=== PATIENT | female | born 1940 | race Caucasian/White ===

== ENCOUNTER 2017-02-12 08:29 | Inpatient (IN) | payer BC ==
--- NOTE | ~2017-02-12 | HP ---
History And Physical [place] [address] [facility] [place]. [address] NAME: KARI MARRERO : 36 STATUS : ADM Hedy PAT#: [id number] AGE: 76 ADM/REG DATE : 02/12/17 MR#: [id number] REPORT SERV DATE: 02/12/17 DICTATED BY: SARA DEVINE DATE: 02/12/17 REPORT STATUS : Draft TRANSCRIBED BY: MODFranci DATE: 02/12/17 DATE OF ADMISSION: 02/12/2017 CHIEF COMPLAINT: Fever, myalgia, and arthralgia starting last night. HISTORY OF PRESENT ILLNESS: This is a very pleasant 76-year-old female. She has a past medical history significant for diabetes type 2 noninsulin dependent, prior history of TIA, history of significant degenerative joint disease, osteoarthritis, prior history of back surgeries multiple with cervical spine fusions as well as lumbar spine laminectomy with chronic back and chronic neck pain on pain management provided by her pain management doctor, Dr. Morales, prior history of acute recurrent sinus infections, prior history of bronchitis, obstructive sleep apnea, noncompliant on CPAP, hyperlipidemia, and obesity presenting today to [facility] accompanied by her as well as by sons and daughters with complaints started last night. She spent her time with the daughter yesterday, and she started as the day passed with myalgia, arthralgia, and chills. There were significant chills and developing some fever. The chills according to the patient were going on whole night. They kept the patient up until this morning when she became very lethargic and that while they were checking her temperature was 103. As a result, they brought their family member to the hospital. She has had some nausea and she did have some increased urinary frequency and urgency, decreased appetite, weakness, and she experienced some sinus pressure for few days. She did not have any phonophobia or photophobia. She did not have any vomiting. No diarrhea or constipation nor she had any cough or any sputum production. The patient has not had any sick contacts recently. No recent hospitalization. She has been denying any sore throat, but she was complaining of some sinus congestion that started today. The patient has been treated in the emergency room and CAT scan of the abdomen and pelvis has been obtained, and after initial evaluation, Hospitalist Service has been asked for admission for further evaluation and treatment. PAST MEDICAL HISTORY: Significant for prior TIA, diabetes type 2, significant prior history of recurrent sinus infection, prior history of bronchitis, chronic back pain, and chronic neck pain. Also, degenerative joint disease, osteoarthritis, obesity, and obstructive sleep apnea. PAST SURGICAL HISTORY: Include back surgery in 1992, 1993, also cervical laminectomy x2, cholecystectomy, right total knee replacement, appendectomy, hysterectomy, tonsillectomy. SOCIAL HISTORY: The patient denies tobacco, alcohol, or IV drugs. ALLERGIES: THE PATIENT IS ALLERGIC TO PHENOTHIAZINE, SULFA, PREDNISONE, PROMETHAZINE, AND ASPIRIN. FAMILY HISTORY: Significant for heart disease and cancer. MEDICATIONS: At home include vitamin B, vitamin D, Flexeril, Estrace, Neurontin, [place], ibuprofen, Claritin, Antivert, Glucophage, Zoloft, Zocor, and steroid ingestions, last one administered three months ago. History And Physical [address] [address] NAME: KARI MARRERO : 38 STATUS : ADM Hedy PAT#: [id number] AGE: 76 ADM/REG DATE : 02/12/17 MR#: [id number] REPORT SERV DATE: 02/12/17 DICTATED BY: SARA DEVINE DATE: 02/12/17 REPORT STATUS : Draft TRANSCRIBED BY: NÉSTOR DATE: 02/12/17 REVIEW OF SYSTEMS: 14-point review of systems has been obtained and pertinent positive has been listed into the history of present illness. Otherwise, negative except those underlying above. PHYSICAL EXAMINATION: VITAL SIGNS: The patient currently on arrival, temperature T-max was 103, blood pressure was 144/54, heart rate 98, respiratory rate 20, and saturating 92% on room air. GENERAL: This is a very pleasant, well-developed, well-nourished female, currently in nonacute distress. She is alert and oriented x3. She is nonfocal. She follows all her commands appropriately. HEENT: Show pupils equal, round, reactive to light. Extraocular movements intact. No JVD. No lymphadenopathy. No thyromegaly appreciated. CHEST: Eval shows bilateral air entry. Clear anteroposterior. No wheezes, crackles, or rhonchi appreciated. CARDIOVASCULAR: She has regular rate and rhythm. S1 and S2 positive. No S3, no S4. No murmurs, rubs, or gallops appreciated. ABDOMEN: Soft with positive bowel sounds. Nontender. No guarding. No rebound. EXTREMITIES: No clubbing, cyanosis, or edema. NEUROLOGIC: The patient is alert and oriented x3. She is nonfocal. She follows all her commands appropriately. Cranial nerves are intact. LABORATORY DATA: Labs from today include sodium 140, potassium 3.8, chloride 103, CO2 of 26, BUN 18, creatinine 0.96, glucose is 156. Her liver function tests are normal. Total bilirubin 0.4, alkaline phosphatase 101, ALT 22, AST 15, lipase is 98. Her lactate was 3.8. White count 10.9, hemoglobin 12.5, hematocrit 37.9, platelets 147. Her influenza screen is negative. UA performed in the emergency room has been negative. Currently, blood cultures are pending. There is a chest x-ray, portable, performed in the emergency room shows no acute cardiopulmonary abnormalities that could be identified. There is a CT scan of the abdomen and pelvis without contrast that has been performed as well showing some fecal studies, constipation. There is some post cholecystectomy, ductal ectasia, possible mild gastritis, fat containing umbilical hernia, and colonic diverticulosis, but no evidence of acute diverticulitis. ASSESSMENT AND PLAN: This is a very pleasant 76-year-old female with: 1. Fever, chills, myalgias, arthralgia, questionable viral syndrome. 2. Possible sepsis. 3. History of recurrent sinus infection. 4. Diabetes type 2, noninsulin dependent. 5. Obstructive sleep apnea. 6. Chronic back pain, on chronic pain management. 7. Obesity. 8. History of vertigo. The patient is going to be admitted to Hospitalist Service. The patient has been pancultured currently. The patient has been already started on Zosyn in the emergency room. We are adding vancomycin and follow up the cultures very History And Physical [address] [place]. [address] NAME: KARI MARRERO : 38 STATUS : ADM Hedy PAT#: [id number] AGE: 76 ADM/REG DATE : 02/12/17 MR#: [id number] REPORT SERV DATE: 02/12/17 DICTATED BY: SARA DEVINE DATE: 02/12/17 REPORT STATUS : Draft TRANSCRIBED BY: MODL DATE: 02/12/17 closely. I am going to check a strep throat as well and procalcitonin level. We are going to follow up the blood cultures. Check a CT of the brain and the CT of the sinuses, provide the vigorous IV hydration and supportive care as well. Start her on clear liquid diet and advanced as tolerated. 9. History of sinusitis. Currently, the patient has significant sinus congestion. We are going to put her on broad-spectrum antibiotics, get the CT of the sinuses. Continue Claritin and add some Nasonex as well and follow her clinically. 10.History of diabetes. Hold metformin. Accu-Cheks before meals and at bedtime and sliding scale insulin subcutaneously level 1. 11.History of hyperlipidemia. Continue her home medications. 12.Chronic back pain, on chronic pain management. We will continue her home medication. Hold for sedation as well. We will provide reasonable pain and nausea control as well as gastrointestinal and deep venous thrombosis prophylaxis. Further workup and recommendation pending above. That has been discussed extensively with the patient as well as the patient's family. All the questions have been answered in full. Further workup and recommendation pending above. It is worthwhile to note that the patient is going to be followed up by Dr. Celestina Antonio. CF/NÉSTOR Sara Devine M.D. / [id number] CC: Paco Oscar Jr, MD
--- NOTE | ~2017-02-12 | DS ---
Discharge Summary [facility] [address] [facility] [place]. [address] NAME: KARI SUGGS : 38 STATUS : DIS IN PAT#: [id number] AGE: 76 ADM/REG DATE : 02/12/17 MR#: [id number] REPORT SERV DATE: 02/20/17 DICTATED BY: LLOYD YOUNGBLOOD DATE: 02/18/17 REPORT STATUS : Draft TRANSCRIBED BY: MODL DATE: 02/18/17 ADMISSION DATE: 02/12/2017 DISCHARGE DATE: Ms. Suggs is a 76-year-old female with a history of diabetes type 2, morbid obesity, and chronic pain syndrome, who presented to the emergency room with a complaint of fever, myalgia, arthralgia that started the night prior to presentation. For further details please refer to H and P dictated by Dr. Bazan on 02/12/2017. I assumed care of the patient on 02/17/2017. Briefly per chart review, upon the patient presenting to the emergency room, the patient was noted to be septic and also the patient was noted to have a left lower extremity cellulitis. Infectious Disease was subsequently consulted. Please refer to consultation note dictated by Infectious Disease on 02/16/2017. The patient had blood cultures drawn on presentation, 1 of 2 bottles was noted to be positive for group B strep. Per ID recommendation, the patient was placed on IV cefazolin for a total of 10 days. Day #1 was 12/19/2016. At the time of my assumption of care, the patient has remained hemodynamically stable. There was significant improvement in her left lower extremity cellulitis. The patient no longer met sepsis criteria. She has remained afebrile with good control of her pain. Given resolution of sepsis, repeat blood culture was also collected and blood cultures have been negative so far. According to Infectious Disease recommendation, the length of IV antibiotic therapy was for 10 days. Given requirement for IV antibiotics, the patient will be discharged either to [facility] pending insurance approval; however, if the patient is denied, the patient will be discharged home and family members will be educated on administering home antibiotics. Plan has been discussed with the patient and family, who are both agreeable with this plan. DISCHARGE DIAGNOSES: 1. Left lower extremity cellulitis. 2. Myalgia. 3. Diabetes type 2. 4. Chronic pain syndrome. 5. Morbid obesity. 6. Obstructive sleep apnea. DISCHARGE PHYSICAL EXAMINATION: VITAL SIGNS: Blood pressure 141/94 with a pulse of 70, respirations 20, and O2 saturation on room air 94%. GENERAL: The patient is sitting in chair, in no acute distress. Appears stated age. HEENT: Normocephalic and atraumatic. Extraocular motors intact. Moist oral mucosa. NECK: Trachea midline and symmetric. No thyromegaly noted. No JVD present. CHEST: Nontender to palpation. CARDIOVASCULAR: Regular rate and rhythm. S1, S2. I do not appreciate any murmurs, rubs, or gallops. LUNGS: Clear to auscultation bilaterally. No wheezing noted. ABDOMEN: Obese. Positive bowel sounds. Nontender. Nondistended. LOWER EXTREMITIES: No cyanosis. No clubbing. No edema. Mild erythema noted on the left lower extremity. Discharge Summary [address] [place]. [address] NAME: KARI SUGGS : 38 STATUS : DIS IN PAT#: [id number] AGE: 76 ADM/REG DATE : 02/12/17 MR#: [id number] REPORT SERV DATE: 02/20/17 DICTATED BY: LLOYD YOUNGBLOOD DATE: 02/18/17 REPORT STATUS : Draft TRANSCRIBED BY: NÉSTOR DATE: 02/18/17 DISCHARGE MEDICATIONS: 1. Hydrochlorothiazide 25 mg p.o. daily. 2. Cefazolin 2 g IV q.8 hours p.r.n. 3. Gabapentin 800 mg p.o. daily. 4. Loratadine 10 mg p.o. daily. 5. Zoloft 50 mg p.o. at bedtime. 6. Simvastatin 20 mg p.o. at bedtime. 7. Flexeril 5 mg p.o. twice a day. 8. Metformin 500 mg twice a day p.r.n. IMAGING STUDIES: Brain CT without contrast. Impression: Unremarkable noncontrast head CT. CT abdomen and pelvis with contrast. Impression: Findings compatible with fecal stasis/constipation with large amount of stool in the ascending and transverse colon and moderate stool within the remainder of the colon. For further details please refer to abdominal CT performed on 02/12/2017. Transthoracic echocardiography, summary: Definity contrast was injected to enhance endocardial delineation. Technically difficult study due to poor acoustic window. Normal left ventricular systolic function with a calculated ejection fraction of 55% to 60%. Normal right ventricular chamber size and systolic function. No evidence of significant valvular regurgitation or stenosis. DISPOSITION: [facility] or will be discharged home on IV antibiotics. ACTIVITY: As tolerated. DIET: Diabetic diet. Greater than 30 minutes were spent coordinating discharge, discharge planning, discussion of care with case management and coordination of discharge, dictation of note, med writing prescription, and medication reconciliation. ADDENDUM The patient was discharged yesterday; however, the patient was unable to go yesterday as facility was not approved by insurance. Insurance approval has been obtained today, and the patient is cleared for discharge. All other information on the discharge summary remains the same. CHASIDY/NÉSTOR Lloyd Youngblood MD / [id number] Discharge Summary [address] [address] NAME: KARI SUGGS : 38 STATUS : DIS IN PAT#: [id number] AGE: 76 ADM/REG DATE : 02/12/17 MR#: [id number] REPORT SERV DATE: 02/20/17 DICTATED BY: LLOYD YOUNGBLOOD DATE: 02/18/17 REPORT STATUS : Draft TRANSCRIBED BY: NÉSTOR DATE: 02/18/17 / [id number] CC: MD Mikayla Draper M.D.
--- NOTE | ~2017-02-12 | CN ---
Consultation Report [facility] [address] [place]. [address] NAME: KARI MARRERO : 38 STATUS : ADM IN PAT#: [id number] AGE: 76 ADM/REG DATE : 02/12/17 MR#: [id number] REPORT SERV DATE: 02/16/17 DICTATED BY: ADAIR GRANT DATE: 02/16/17 REPORT STATUS : Draft TRANSCRIBED BY: MODFranci DATE: 02/16/17 INFECTIOUS DISEASE CONSULTATION DATE OF CONSULTATION: REASON FOR CONSULT: Group B strep bacteremia. HISTORY OF PRESENT ILLNESS: A 76 years old white lady with history of diabetes, COPD, sleep apnea, obesity, right knee replacement, cervical spine fusion, lumbar spine surgery, who was admitted with acute onset of encephalopathy, fever, and chills. She states that she has not really felt good for maybe a week or two, just tired and weak. She had some frontal headache. A couple of weeks ago, her electric chair ran out of control into a shelf in a store and maybe she had a small wound on the left lateral calf. The day of admission, she was not asleep and suddenly started having chills. They lasted several hours. She did not want to wake up her . She then got in bed and covered up, and when her woke up in the morning, he could not arouse her, so he called the ambulance. She had a temperature of 103. At the hospital, she had elevated lactic acid and procalcitonin. Troponin of 0.35. The WBC was just 10.9. Creatinine 0.9. Influenza screen was negative. Chest x-ray, no infiltrates. Urine drug screen positive for opiates. Urinalysis is unremarkable. CT of the abdomen showed fecal stasis, some mild thickening of the stomach antrum, common bile duct of 8 mm. Liver enzymes were within normal limits. It was noted at some point that she had erythema and swelling of the left lower leg and foot. Now, she remembers that recently she had itching between the 4th and 5th toes and she scratched it there. She put aloe, then hydrocortisone and antibiotic cream. The left lateral calf wound closed. One of two admission blood cultures grew group B strep. A throat culture was negative for group A strep. Her left leg pain and erythema improved and now the question was about the antibiotic treatment for the bacteremia and sepsis. She reported no toothaches, in fact, she does not have her own teeth. She had implants and dentures. No abdominal pain. She might have constipation. She always urinates a lot, but she has no dysuria. No acute pain in the spine or knees. PAST MEDICAL HISTORY: As I mentioned above plus history of bronchitis and allergies, hyperlipidemia. PAST SURGICAL HISTORY: Appendectomy, hysterectomy, cholecystectomy, tonsillectomy, right knee replacement, and the spine surgeries. She had cornea surgeries bilaterally. SOCIAL HISTORY: She lives with her . She spends a lot of time sitting up. Consultation Report [facility] [address] [place]. [address] NAME: KARI MARRERO : 38 STATUS : ADM IN [facility]#: [id number] AGE: 76 ADM/REG DATE : 02/12/17 MR#: [id number] REPORT SERV DATE: 02/16/17 DICTATED BY: ADAIR GRANT DATE: 02/16/17 REPORT STATUS : Draft TRANSCRIBED BY: NÉSTOR DATE: 02/16/17 FAMILY HISTORY: Cancer and heart disease. ALLERGIES: A CHILD, SHE WAS TOLD THAT MAYBE SULFA CAUSED SOME SKIN SORES. SHE DOES NOT REMEMBER IF THOSE WERE JUST ON HER LEGS. ALSO, SHE TOOK LEVAQUIN ONE TIME FOR A BRONCHITIS AND DEVELOPED SOME FACIAL ASYMMETRY, SO SHE TOLD ME MAY BE SHE HAD A TIA, AND FOR WHATEVER REASON, DR. CECILIA DAY ASSOCIATED THAT WITH LEVAQUIN. ALSO LISTED ARE PREDNISONE THAT CAUSED HEART RACE AND PAINS, AND PROMETHAZINE THAT CAUSED HIVES, AND ASPIRIN CAUSED HER HEART RACING. MEDICATIONS: On admission, vitamin B Complex, vitamin D, Flexeril twice a day, estradiol, gabapentin, [place] as needed, ibuprofen as needed, Claritin, meclizine as needed, metformin, Zoloft, Zocor. She gets spine steroid injections I guess. PHYSICAL EXAMINATION: GENERAL: She is awake, hard of hearing. She has dentures. LUNGS: Clear to auscultation. HEART: Regular rhythm without obvious murmur. ABDOMEN: Obese, nontender to palpation. EXTREMITIES: Knees without inflammatory changes. No pain with range of motion. Left lower leg with erythema. Left ankle with good range of motion without pain. No feet open wound that I can see. INVESTIGATIONS: Today, creatinine 0.7. Liver enzymes within normal limits. WBC 4.9, hemoglobin 9.6, platelets 150. Chest x-ray with maybe a very small right effusion and right middle lobe atelectasis. Echocardiogram had limited window. No obvious valvular disease, but again poor visualization. ASSESSMENT AND PLAN: 1. Sepsis that now appears resolved. 2. Group B strep bacteremia. 3. Left lower leg cellulitis. 4. History of diabetes, sleep apnea, chronic obstructive pulmonary disease, right knee replacement, spine surgeries with hardware placement, and chronic back pain. Would plan two weeks of IV antibiotics with either Ancef or Rocephin. Repeat blood cultures. I asked her to keep the left leg elevated and monitor for any skin injury since that could trigger the cellulitis. Interdigital skin cracks are a common cause of lower leg cellulitis. Of course, if she has some leg edema, keep the legs elevated even after the cellulitis resolved. I discussed with the patient, daughter, and . SLOAN/NÉSTOR Consultation Report [address] [place]. [address] NAME: KARI MARRERO : 38 STATUS : ADM IN [facility]#: [id number] AGE: 76 ADM/REG DATE : 02/12/17 MR#: [id number] REPORT SERV DATE: 02/16/17 DICTATED BY: ADAIR GRANT DATE: 02/16/17 REPORT STATUS : Draft TRANSCRIBED BY: NÉSTOR DATE: 02/16/17 Adair Grant M.D. / [id number] CC: MD Mikayla Beltre M.D.
[~2017-02-12 08:29] MED LIST: FLEX PO; METFORMIN; NEUR800 PO; VICODINTAB PO; ZOL100 PO; [UNRECOGNIZED DRUG - REMARK]
[2017-02-12 09:47] LABS: BASOPHILS 0.1 %; BASOPHILS ABSOLUTE 0.01 10/3/uL (0.0-0.16); EOSINOPHILS 0.3 %; EOSINOPHILS ABSOLUTE 0.03 10/3/uL (0.0-0.53); ER CBC TAT 0 Hrs 09 Mins; HEMATOCRIT 37.9 % (36.0-48.0); HEMOGLOBIN 12.5 g/dL (12.0-16.0); IMMATURE GRANULOCYTES 0.3 %; IMMATURE GRANULOCYTES ABSOLUTE 0.03 10/3/uL (0.0-0.11); LYMPHOCYTES 4.6 %; MANUAL DIFF NO %; MEAN CORPUSCULAR HEMOGLOB 29.3 pg (26.0-34.0); MEAN PLATELET VOLUME 11.7 fL (9.2-13.0); MONOCYTES 4.9 %; MONOCYTES ABSOLUTE 0.53 10/3/uL (0.21-1.20); NEUTROPHILS 89.8 %; NEUTROPHILS ABSOLUTE 9.77 10/3/uL (2.02-8.40); PLATELET COUNT 147 10/3/uL (150-400); RBC DISTRIBUTION WIDTH 13.1 % (12.0-16.0); RED CELL COUNT 4.26 10/6/uL (4.0-5.6); WHITE BLOOD CELLS 10.9 10/3/uL (4.5-10.5)
[2017-02-12 10:21] LABS: INFLUENZA A SCREEN NEGATIVE (NEGATIVE); INFLUENZA B SCREEN NEGATIVE (NEGATIVE)
[2017-02-12 11:16] LABS: ASCORBIC ACID (UR NOT ORDER) NEG (NEG); BILIRUBIN, URINE NEGATIVE (NEG); ER URINALYSIS TAT 0 Hrs 21 Mins; KETONE, URINE NEGATIVE (NEG); LEUKOCYTE ESTERASE(NOT OR NEG (NEG); NITRITE (URINE) NEG (NEG); WBC (NOT ORDERED) (RFLEX) < 1 (0-5)
[2017-02-12] MEDS ORDERED: NORCO1 TAB PO (11:26)
[2017-02-12] MEDS ORDERED: FLEXERIL5 MG PO (11:26)
[2017-02-12] MEDS ORDERED: ZOL50 PO (11:26)
[2017-02-12 11:27] LABS: ALBUMIN 3.5 G/DL (3.5-5.0); ALKALINE PHOSPHATASE 101 U/L (45-117); BUN (BLOOD UREA NITROGEN) 18 MG/DL (6-23); CALCIUM, SERUM 8.2 MG/DL (8.5-10.4); CHLORIDE, SERUM 103 MMOL/L (96-112); CO2 (CARBON DIOXIDE) 26 MMOL/L (24-34); CREATININE 0.96 MG/DL (0.55-1.02); GFR AFRICAN AMERICAN 66 ML/MIN (>=60); GFR NON AFRICAN AMERICAN 57 ML/MIN (>=60); GLOBULIN 3.5 G/DL (2.5-4.1); GLUCOSE, SERUM 156 MG/DL (60-99); POTASSIUM, SERUM 3.8 MMOL/L (3.5-5.3); SGOT(AST) 15 U/L (5-40); SGPT(ALT) 22 U/L (5-65); SODIUM, SERUM 140 MMOL/L (135-148); TOTAL BILIRUBIN 0.4 MG/DL (0-1.2)
[2017-02-12] MEDS ORDERED: MCZ25 PO (11:27)
[2017-02-12] MEDS ORDERED: NEUR800 PO (11:27)
[2017-02-12] MEDS ORDERED: STEROID INJECTION IM (11:28)
[2017-02-12] MEDS ORDERED: ADVIL PO (11:28)
[2017-02-12] MEDS ORDERED: D 5000 PO (11:29)
[2017-02-12] MEDS ORDERED: VITAMIN B PO (11:29)
[2017-02-12] MEDS ORDERED: CLARIT10 PO (11:30)
[2017-02-12] MEDS ORDERED: ESTRACE1 MG PO (11:35)
[2017-02-12] MEDS ORDERED: ZOCOR20 PO (11:35)
[2017-02-12] MEDS ORDERED: GLUCPH PO (11:46)
[2017-02-12 17:44] LABS: ACETAMINOPHEN LEVEL (TYLENOL) 9.5 MCG/ML (10.0-20.0); FREE T4 1.04 NG/DL (0.76-1.46); PHOSPHORUS, SERUM 1.8 MG/DL (2.5-4.5)
[2017-02-12 17:45] LABS: ALCOHOL < 10 MG/DL (0); SALICYLATE < 1.7 MG/DL (-); TROPONIN I 0.35 NG/ML (<0.05); ULTRASENSITIVE TSH 0.582 MCIU/ML (0.358-3.740)
[2017-02-12 18:50] LABS: PROCALCITONIN 2.43 ng/mL (<0.5)
[2017-02-12 20:12] LABS: INTERNATIONAL NORMAL RATI 1.1 UNITS (-); PARTIAL THROMBO TIME 27.3 SEC (22.5-37.2)
[2017-02-12 22:25] LABS: AMPHETAMINES (NOT ORD) NEG (NEG); BARBITURATES (NOT ORDERED NEG (NEG); BENZODIAZEPINES (NOT ORD) NEG (NEG); CANNABINOIDS (THC) NEG (NEG); COCAINE (NOT ORDERED) NEG (NEG); OPIATES POS (NEG); PHENCYCLIDINE(PCP) NEG (NEG); TRICYCLICS NEG (NEG)
[2017-02-13 05:42] LABS: BASOPHILS 0.1 %; BASOPHILS ABSOLUTE 0.01 10/3/uL (0.0-0.16); EOSINOPHILS 0 %; HEMOGLOBIN 10.6 g/dL (12.0-16.0); IMMATURE GRANULOCYTES 0.2 %; IMMATURE GRANULOCYTES ABSOLUTE 0.02 10/3/uL (0.0-0.11); LYMPHOCYTES 9.8 %; LYMPHOCYTES ABSOLUTE 1.04 10/3/uL (0.67-4.30); MEAN CORPUS HGB CONC 33.7 g/dL (32.0-36.0); MEAN CORPUSCULAR HEMOGLOB 29.6 pg (26.0-34.0); MEAN PLATELET VOLUME 11.3 fL (9.2-13.0); MONOCYTES 4.2 %; MONOCYTES ABSOLUTE 0.45 10/3/uL (0.21-1.20); NEUTROPHILS 85.7 %; NEUTROPHILS ABSOLUTE 9.14 10/3/uL (2.02-8.40); PLATELET COUNT 129 10/3/uL (150-400); RED CELL COUNT 3.58 10/6/uL (4.0-5.6); WHITE BLOOD CELLS 10.7 10/3/uL (4.5-10.5)
[2017-02-13 05:43] LABS: HEMATOCRIT 31.5 % (36.0-48.0); MANUAL DIFF NO %
[2017-02-13 06:01] LABS: A/G RATIO 0.7 (0.7-1.9); ALBUMIN 2.5 G/DL (3.5-5.0); ALKALINE PHOSPHATASE 74 U/L (45-117); BUN (BLOOD UREA NITROGEN) 18 MG/DL (6-23); CALCIUM, SERUM 7.2 MG/DL (8.5-10.4); CHLORIDE, SERUM 105 MMOL/L (96-112); CO2 (CARBON DIOXIDE) 28 MMOL/L (24-34); CREATININE 0.99 MG/DL (0.55-1.02); GFR AFRICAN AMERICAN 63 ML/MIN (>=60); GFR NON AFRICAN AMERICAN 55 ML/MIN (>=60); GLOBULIN 3.5 G/DL (2.5-4.1); GLUCOSE, SERUM 105 MG/DL (60-99); POTASSIUM, SERUM 3.7 MMOL/L (3.5-5.3); SGOT(AST) 19 U/L (5-40); SGPT(ALT) 20 U/L (5-65); SODIUM, SERUM 139 MMOL/L (135-148); TOTAL BILIRUBIN 0.4 MG/DL (0-1.2); TROPONIN I 0.19 NG/ML (<0.05)
[2017-02-14 07:14] LABS: BASOPHILS 0.2 %; BASOPHILS ABSOLUTE 0.01 10/3/uL (0.0-0.16); EOSINOPHILS 0.9 %; EOSINOPHILS ABSOLUTE 0.06 10/3/uL (0.0-0.53); HEMATOCRIT 29.5 % (36.0-48.0); HEMOGLOBIN 9.8 g/dL (12.0-16.0); IMMATURE GRANULOCYTES 0.3 %; IMMATURE GRANULOCYTES ABSOLUTE 0.02 10/3/uL (0.0-0.11); LYMPHOCYTES 21.9 %; LYMPHOCYTES ABSOLUTE 1.41 10/3/uL (0.67-4.30); MEAN CORPUS HGB CONC 33.2 g/dL (32.0-36.0); MEAN CORPUSCULAR HEMOGLOB 29.8 pg (26.0-34.0); MEAN CORPUSCULAR VOLUME 89.7 fL (80-100); MEAN PLATELET VOLUME 11.8 fL (9.2-13.0); MONOCYTES ABSOLUTE 0.45 10/3/uL (0.21-1.20); NEUTROPHILS 69.7 %; NEUTROPHILS ABSOLUTE 4.48 10/3/uL (2.02-8.40); PLATELET COUNT 123 10/3/uL (150-400); RBC DISTRIBUTION WIDTH 13.5 % (12.0-16.0); RED CELL COUNT 3.29 10/6/uL (4.0-5.6)
[2017-02-14 07:31] LABS: BUN (BLOOD UREA NITROGEN) 16 MG/DL (6-23); CHLORIDE, SERUM 109 MMOL/L (96-112); CO2 (CARBON DIOXIDE) 28 MMOL/L (24-34); GFR AFRICAN AMERICAN 82 ML/MIN (>=60); GFR NON AFRICAN AMERICAN 71 ML/MIN (>=60); POTASSIUM, SERUM 3.8 MMOL/L (3.5-5.3); SODIUM, SERUM 143 MMOL/L (135-148)
[2017-02-14 07:32] LABS: CALCIUM, SERUM 8.3 MG/DL (8.5-10.4); GLUCOSE, SERUM 77 MG/DL (60-99); TROPONIN I 0.06 NG/ML (<0.05)
[2017-02-14 07:35] LABS: MANUAL DIFF NO %; WHITE BLOOD CELLS 6.4 10/3/uL (4.5-10.5)
[2017-02-15 05:02] LABS: ALBUMIN 2.6 G/DL (3.5-5.0); ALKALINE PHOSPHATASE 81 U/L (45-117); CALCIUM, SERUM 8.9 MG/DL (8.5-10.4); CHLORIDE, SERUM 108 MMOL/L (96-112); CO2 (CARBON DIOXIDE) 26 MMOL/L (24-34); CREATININE 0.88 MG/DL (0.55-1.02); GFR AFRICAN AMERICAN 73 ML/MIN (>=60); GFR NON AFRICAN AMERICAN 63 ML/MIN (>=60); PHOSPHORUS, SERUM 2.6 MG/DL (2.5-4.5); SGPT(ALT) 18 U/L (5-65); SODIUM, SERUM 141 MMOL/L (135-148); TOTAL BILIRUBIN 0.3 MG/DL (0-1.2); TOTAL PROTEIN 6.9 G/DL (6.0-8.5)
[2017-02-15 05:06] LABS: BUN (BLOOD UREA NITROGEN) 11 MG/DL (6-23); GLUCOSE, SERUM 96 MG/DL (60-99); POTASSIUM, SERUM 4.3 MMOL/L (3.5-5.3)
[2017-02-15 05:07] LABS: A/G RATIO 0.6 (0.7-1.9); GLOBULIN 4.3 G/DL (2.5-4.1); SGOT(AST) 19 U/L (5-40)
[2017-02-16 05:35] LABS: BASOPHILS 0.2 %; BASOPHILS ABSOLUTE 0.01 10/3/uL (0.0-0.16); EOSINOPHILS 2.1 %; HEMATOCRIT 29.1 % (36.0-48.0); HEMOGLOBIN 9.6 g/dL (12.0-16.0); IMMATURE GRANULOCYTES 0.4 %; IMMATURE GRANULOCYTES ABSOLUTE 0.02 10/3/uL (0.0-0.11); LYMPHOCYTES 34.1 %; LYMPHOCYTES ABSOLUTE 1.66 10/3/uL (0.67-4.30); MEAN CORPUSCULAR HEMOGLOB 29.1 pg (26.0-34.0); MEAN CORPUSCULAR VOLUME 88.2 fL (80-100); MEAN PLATELET VOLUME 11.5 fL (9.2-13.0); MONOCYTES 7.6 %; MONOCYTES ABSOLUTE 0.37 10/3/uL (0.21-1.20); NEUTROPHILS 55.6 %; NEUTROPHILS ABSOLUTE 2.71 10/3/uL (2.02-8.40); PLATELET COUNT 150 10/3/uL (150-400); RBC DISTRIBUTION WIDTH 13.2 % (12.0-16.0); WHITE BLOOD CELLS 4.9 10/3/uL (4.5-10.5)
[2017-02-16 05:38] LABS: MANUAL DIFF NO %
[2017-02-16 05:47] LABS: A/G RATIO 0.7 (0.7-1.9); ALBUMIN 2.5 G/DL (3.5-5.0); ALKALINE PHOSPHATASE 71 U/L (45-117); BUN (BLOOD UREA NITROGEN) 8 MG/DL (6-23); CALCIUM, SERUM 8.1 MG/DL (8.5-10.4); CHLORIDE, SERUM 109 MMOL/L (96-112); CO2 (CARBON DIOXIDE) 28 MMOL/L (24-34); CREATININE 0.72 MG/DL (0.55-1.02); GFR AFRICAN AMERICAN 93 ML/MIN (>=60); GFR NON AFRICAN AMERICAN 80 ML/MIN (>=60); GLOBULIN 3.8 G/DL (2.5-4.1); GLUCOSE, SERUM 91 MG/DL (60-99); PHOSPHORUS, SERUM 3.2 MG/DL (2.5-4.5); POTASSIUM, SERUM 3.9 MMOL/L (3.5-5.3); SGOT(AST) 13 U/L (5-40); SGPT(ALT) 12 U/L (5-65); SODIUM, SERUM 145 MMOL/L (135-148); TOTAL BILIRUBIN 0.2 MG/DL (0-1.2); TOTAL PROTEIN 6.3 G/DL (6.0-8.5)
[2017-02-18 05:13] LABS: MEAN CORPUS HGB CONC 32.8 g/dL (32.0-36.0); MEAN CORPUSCULAR HEMOGLOB 29.2 pg (26.0-34.0); WHITE BLOOD CELLS 5.7 10/3/uL (4.5-10.5)
[2017-02-18 05:16] LABS: HEMATOCRIT 35.7 % (36.0-48.0); HEMOGLOBIN 11.7 g/dL (12.0-16.0); MANUAL DIFF YES %; PLATELET COUNT 217 10/3/uL (150-400); RED CELL COUNT 4.01 10/6/uL (4.0-5.6)
[2017-02-18 05:43] LABS: A/G RATIO 0.7 (0.7-1.9); ALBUMIN 3.1 G/DL (3.5-5.0); ALKALINE PHOSPHATASE 76 U/L (45-117); BUN (BLOOD UREA NITROGEN) 13 MG/DL (6-23); CALCIUM, SERUM 9.9 MG/DL (8.5-10.4); CHLORIDE, SERUM 107 MMOL/L (96-112); CO2 (CARBON DIOXIDE) 25 MMOL/L (24-34); CREATININE 0.88 MG/DL (0.55-1.02); GFR AFRICAN AMERICAN 73 ML/MIN (>=60); GFR NON AFRICAN AMERICAN 63 ML/MIN (>=60); GLOBULIN 4.4 G/DL (2.5-4.1); GLUCOSE, SERUM 113 MG/DL (60-99); POTASSIUM, SERUM 4.1 MMOL/L (3.5-5.3); SGOT(AST) 25 U/L (5-40); SGPT(ALT) 16 U/L (5-65); SODIUM, SERUM 143 MMOL/L (135-148); TOTAL BILIRUBIN 0.2 MG/DL (0-1.2); TOTAL PROTEIN 7.5 G/DL (6.0-8.5)
[2017-02-18 05:52] LABS: BAND NEUTROPHILS 2 %; EOSINOPHILS 4 %; EOSINOPHILS ABSOLUTE (CALC) 0.23 10/3/uL (0.0-0.53); LYMPHOCYTES 30 %; LYMPHOCYTES ABSOLUTE (CALC) 1.71 10/3/uL (0.67-4.30); MONOCYTES 4 %; MONOCYTES ABSOLUTE (CALC) 0.23 10/3/uL (0.21-1.20); NEUTROPHILS ABSOLUTE (CALC) 3.53 10/3/uL (2.02-8.40); PLATELET ESTIMATE ADQ (ADEQUATE); RBC MORPHOLOGY NORM (NORMAL); SEGMENTED NEUTROPHIL (0) 60 %; TOTAL NUCLEATED CELLS 100
== END 2017-02-19 13:03 | DRG 872 ==
LOC: ER 08:29 → CDU1 14:24 → CDU2 15:53 → 7NO 02-15 21:33
PROVIDERS: Emergency Medicine; Hospitalist; Internal Medicine
DX: A41.81 Sepsis due to Enterococcus (principal); E11.9 Type 2 diabetes mellitus without complications; Z68.42 Body mass index [BMI] 45.0-49.9, adult; L03.116 Cellulitis of left lower limb; E66.01 Morbid (severe) obesity due to excess calories; G89.4 Chronic pain syndrome; G47.33 Obstructive sleep apnea (adult) (pediatric); K59.00 Constipation, unspecified; E78.5 Hyperlipidemia, unspecified; M54.9 Dorsalgia, unspecified; Z86.73 Personal history of transient ischemic attack (TIA), and cerebral infarction without residual deficits; Z98.1 Arthrodesis status; Z90.49 Acquired absence of other specified parts of digestive tract; Z96.651 Presence of right artificial knee joint; Z90.710 Acquired absence of both cervix and uterus; Z88.2 Allergy status to sulfonamides; Z88.6 Allergy status to analgesic agent; Z88.8 Allergy status to other drugs, medicaments and biological substances; Z79.84 Long term (current) use of oral hypoglycemic drugs
CPT/HCPCS: 70450; 70486; 71010; 71020; 74177; 80048; 80053; 80305; 80307; 81001; 82150; 82962; 83036; 83605; 83615; 83690; 83735; 84100; 84145; 84439; 84443; 84484; 85025; 85610; 85730; 87040; 87070; 87077; 87150; 87186; 87449; 87804; 87880; 93970; 94640; 96365; 96366; 96375; 97162-GP; 97165-GO; 99285; A9270-GY; C8929; G8978-CK-GP; G8979-CJ-GP; J0690; J2405; J2543; J3370; Q9957; Q9967